=== PATIENT | female | born 1935 | race Caucasian/White ===

== ENCOUNTER 2019-08-30 10:16 | Inpatient (IN) | payer OTHER ==
[~2019-08-30] VITALS: Ht 165.1 cm; Wt 56.7 kg
[~2019-08-30 10:16] MED LIST: KEFLEX250 MG PO; METFORMIN HCL500 MG PO; SIMVASTATIN40 MG; VICODIN 5-5001 EACH PO
[2019-08-30 10:17] VITALS: BP 175/48
[2019-08-30] MEDS ORDERED: SYNTHROID88 MC1 (10:26)
[2019-08-30 13:37] LABS: ABSOLUTE NEUTROPHILS 11.8 thou/uL (1.4-8.2); BASOPHILS 0.3 % (0.0-2.0); EOSINOPHILS 0.3 % (0.0-3.0); HEMOGLOBIN 13.3 gm/dL (12.0-15.0); LYMPHOCYTES 14.2 % (24.0-44.0); MCH 29.1 pg (26.0-34.0); MCHC 32.4 g/dL (28.0-37.0); MCV 89.7 fL (80.0-100.0); PLATELET COUNT 258 thou/uL (150-400); POLYS 82.2 % (36.0-66.0); RBC 4.57 mil/uL (4.20-5.00); RDW 13.4 % (10.5-14.5); WBC 14.4 thou/uL (4.0-11.0)
[2019-08-30 13:46] LABS: CALCIUM 9.7 mg/dL (8.5-10.1); CREATININE 1.1 mg/dL (0.6-1.0); POTASSIUM 4.2 mmol/L (3.5-5.1)
[2019-08-30 17:01] VITALS: BP 107/36
[2019-08-30 17:30] VITALS: BP 138/56
[2019-08-30 19:55] VITALS: BP 133/49
[2019-08-30] MEDS ORDERED: SERTRALINE HCL50 MG PO (22:28)
[2019-08-31 05:29] LABS: CALCIUM 8.8 mg/dL (8.5-10.1); CREATININE 1.1 mg/dL (0.6-1.0); POTASSIUM 4.2 mmol/L (3.5-5.1)
[2019-08-31 08:27] VITALS: BP 141/50
[2019-08-31 15:44] VITALS: BP 146/55
[2019-08-31 19:10] VITALS: BP 101/86
[2019-09-01 06:38] LABS: URINE BILIRUBIN NEGATIVE (Negative); URINE BLOOD NEGATIVE (Negative); URINE CLARITY CLEAR; URINE COLOR YELLOW; URINE GLUCOSE-RANDOM* NEGATIVE (Negative); URINE KETONES NEGATIVE (Negative); URINE LEUKOCYTES-REFLEX TRACE (Negative); URINE PROTEIN (DIPSTICK) NEGATIVE (Negative); URINE SPECIFIC GRAVITY 1.025 (1.005-1.035); URINE UROBILINOGEN 0.2 E.U./dl (0.2-1.0)
[2019-09-01 06:41] LABS: URINE NITRITE-REFLEX POSITIVE (Negative)
[2019-09-01 06:51] LABS: BACTERIA-REFLEX >30 Many /HPF (None Seen); CASTS None Seen /LPF (None Seen); SQUAMOUS 0-3 Few /LPF (0-3); URINE RBC None Seen /HPF (0-2); URINE WBC-REFLEX 0-5 Rare /HPF (0-5)
[2019-09-01 06:52] LABS: CRYSTALS None Seen /LPF (None Seen)
[2019-09-01 07:30] VITALS: BP 126/58
[2019-09-01] MEDS ORDERED: LEVO-T100 MCG PO (13:53)
[2019-09-01 14:30] VITALS: BP 108/51
[2019-09-01 19:48] VITALS: BP 118/40
[2019-09-02 08:00] VITALS: BP 134/40
[2019-09-02 15:00] VITALS: BP 120/47
[2019-09-02 20:00] VITALS: BP 118/50
[2019-09-03 07:33] VITALS: BP 126/57
[2019-09-03 11:42] LABS: HEMATOCRIT 32.1 % (37.0-47.0); HEMOGLOBIN 10.5 gm/dL (12.0-15.0); MCHC 32.8 g/dL (28.0-37.0); MCV 91.3 fL (80.0-100.0); RBC 3.51 mil/uL (4.20-5.00); RDW 13.6 % (10.5-14.5); WBC 8.1 thou/uL (4.0-11.0)
[2019-09-03 11:55] LABS: CALCIUM 8.7 mg/dL (8.5-10.1); MAGNESIUM 1.9 mg/dL (1.8-2.4); POTASSIUM 4.2 mmol/L (3.5-5.1)
[2019-09-03 14:45] VITALS: BP 108/64
[2019-09-03 16:58] VITALS: BP 152/66
[2019-09-03 19:39] VITALS: BP 139/61
[2019-09-04 06:17] LABS: HEMOGLOBIN 9.8 gm/dL (12.0-15.0); MCH 30.1 pg (26.0-34.0); MCHC 32.7 g/dL (28.0-37.0); MCV 91.8 fL (80.0-100.0); RBC 3.27 mil/uL (4.20-5.00); RDW 13.7 % (10.5-14.5); WBC 9.2 thou/uL (4.0-11.0)
[2019-09-04 06:31] LABS: CALCIUM 8.4 mg/dL (8.5-10.1); CREATININE 0.9 mg/dL (0.6-1.0); MAGNESIUM 2.1 mg/dL (1.8-2.4); POTASSIUM 4.2 mmol/L (3.5-5.1)
[2019-09-04 08:32] VITALS: BP 131/62
[2019-09-04 16:02] VITALS: BP 137/61
[2019-09-04 19:58] VITALS: BP 124/57
[2019-09-05 07:39] VITALS: BP 146/56
[2019-09-05 14:27] VITALS: BP 107/67
[2019-09-05 19:58] VITALS: BP 134/53
[2019-09-05 21:31] VITALS: BP 134/53
[2019-09-06 07:30] VITALS: BP 85/63
[2019-09-06 08:15] VITALS: BP 151/65
[2019-09-06 08:25] VITALS: BP 134/51
[2019-09-06] MEDS ORDERED: KEFLEX500 M1 PO (13:19)
[2019-09-06] MEDS ORDERED: REMERON 30 MG T30 M1 PO (13:20)
[2019-09-06] MEDS ORDERED: TRAMADOL 50 MG50 MG PO (13:20)
[2019-09-06] MEDS ORDERED: ENOXAPARIN30 MG/0.1 SUBQ (13:20)
[2019-09-06] MEDS ORDERED: LACTULOSE20 GM/30 M PO (13:21)
== END 2019-09-06 15:24 | DRG 560 ==
LOC: ER 10:16 → 4W 13:50 → 4N 13:50 → EROBS 13:50 → 4W 17:46 → 4N 09-03 16:44
PROVIDERS: Emergency Medicine; Internal Medicine; ADMIT Hospitalist
DX: M97.8XXA Periprosthetic fracture around other internal prosthetic joint, initial encounter (principal); S79.102A Unspecified physeal fracture of lower end of left femur, initial encounter for closed fracture; N39.0 Urinary tract infection, site not specified; N17.9 Acute kidney failure, unspecified; W01.0XXA Fall on same level from slipping, tripping and stumbling without subsequent striking against object, initial encounter; E11.9 Type 2 diabetes mellitus without complications; E03.9 Hypothyroidism, unspecified; E78.00 Pure hypercholesterolemia, unspecified; E78.5 Hyperlipidemia, unspecified; S83.8X2A Sprain of other specified parts of left knee, initial encounter; S93.492A Sprain of other ligament of left ankle, initial encounter; F32.9 Major depressive disorder, single episode, unspecified; F03.90 Unspecified dementia, unspecified severity, without behavioral disturbance, psychotic disturbance, mood disturbance, and anxiety; K59.00 Constipation, unspecified; B96.20 Unspecified Escherichia coli [E. coli] as the cause of diseases classified elsewhere; D64.9 Anemia, unspecified; Z90.710 Acquired absence of both cervix and uterus; Z79.2 Long term (current) use of antibiotics; Y93.89 Activity, other specified; Y92.89 Other specified places as the place of occurrence of the external cause; Y99.8 Other external cause status; Z79.84 Long term (current) use of oral hypoglycemic drugs; Z79.891 Long term (current) use of opiate analgesic; Z79.899 Other long term (current) drug therapy; Z28.21 Immunization not carried out because of patient refusal
CPT/HCPCS: 10047; 10790